=== PATIENT | female | born 2000 | race Caucasian/White ===

== ENCOUNTER 2018-07-20 21:58 | Observation (INO) ==
[2018-07-20 22:30] LABS: Bilirubin,Urine Negative (Negative); Blood,Urine Negative (Negative); Clarity,Urine Cloudy (Clear); Color,Urine Yellow (Yellow); Glucose,Urine (UA) Normal (Normal); Ketones,Urine Negative (Negative); Leukocyte Esterase,Urine Small (Negative); Nitrite,Urine Negative (Negative); Protein,Urine 30 mg/dL (Neg-Trace); Specific Gravity,Urine 1.011 (1.010-1.025); Urobilinogen,Urine Normal (Normal)
[2018-07-20 22:31] LABS: Bacteria,Urine Moderate per hpf (None-Few); Hyaline Casts,Urine Few per lpf (None-Few); RBC,Urine 0-3 per hpf (0-3); Squamous Epithelial Cell,Urine Many per lpf (None-Few); WBC,Urine 30-50 per hpf (0-3)
[2018-07-20 22:40] LABS: Amphetamine Screen,Urine Negative ng/mL (Cutoff=1000); Barbiturate Screen,Urine Negative ng/mL (Cutoff=200); Benzodiazepines Screen,Urine Negative ng/mL (Cutoff=200); Cannabinoid Screen,Urine Negative ng/mL (Cutoff = 50); Cocaine Screen,Urine Negative ng/mL (Cutoff= 300); Opiate Screen,Urine Negative ng/mL (Cutoff=300); Phencyclidine Screen,Urine Negative ng/mL (Cutoff=25)
--- NOTE | 2018-07-20 23:49 | Discharge Summary ---
Date of Encounter: 07/20/18 Time of Encounter: 23:48 - Discharge Diagnosis (1) 35 weeks gestation of Priority: Primary Status: Acute Comments: Admit to observation for labor evaluation (2) NST (non-stress test) reactive Priority: Secondary Status: Acute Comments: Cat I FHR tracing, +15x15 accels, no decels. (3) uterine contractions in third trimester, antepartum Priority: Secondary Status: Acute Comments: Continuous contraction monitoring. - Discharge Medications Allergies/Adverse Reactions: Allergy/AdvReac Type Severity Reaction Status Date / Time No Known Allergies Allergy Verified 07/20/18 22:10 Data Procedures and tests throughout hospitalization: Laboratory Tests 07/20/18 07/20/18 22:12 22:12 Urine Color Yellow Urine Clarity Cloudy A Urine pH 7.0 Ur Specific [place] 1.011 Urine Protein 30 H Urine Glucose (UA) Normal Urine Ketones Negative Urine Blood Negative Urine Nitrite Negative Urine Bilirubin Negative Urine Urobilinogen Normal Ur Leukocyte Esterase Small H Urine Microscopic RBC 0-3 Urine Microscopic WBC 30-50 H Ur Squamous Epith Cells Many H Urine Bacteria Moderate H Hyaline Casts Few Ur Culture Indicated? YES A Urine Opiates Screen Negative Ur Barbiturates Screen Negative Ur Phencyclidine Scrn Negative Ur Amphetamines Screen Negative U Benzodiazepines Scrn Negative Urine Cocaine Screen Negative U Marijuana (THC) Screen Negative Ur Drug Screen Interp See Below Labs on day of discharge: Labs from last 24 hours 07/20/18 07/20/18 22:12 22:12 Urine Color Yellow Urine Clarity Cloudy A Urine pH 7.0 Ur Specific [place] 1.011 Urine Protein 30 H Urine Glucose (UA) Normal Urine Ketones Negative Urine Blood Negative Urine Nitrite Negative Urine Bilirubin Negative Urine Urobilinogen Normal Ur Leukocyte Esterase Small H Urine Microscopic RBC 0-3 Urine Microscopic WBC 30-50 H Ur Squamous Epith Cells Many H Urine Bacteria Moderate H Hyaline Casts Few Ur Culture Indicated? YES A Urine Opiates Screen Negative Ur Barbiturates Screen Negative Ur Phencyclidine Scrn Negative Ur Amphetamines Screen Negative U Benzodiazepines Scrn Negative Urine Cocaine Screen Negative U Marijuana (THC) Screen Negative Ur Drug Screen Interp See Below Date of admission: 07/20/18 21:58 Discharging clinician: Kaylin Juarez Anticipated date of discharge: 07/20/18 - Patient Status Disposition: Home, Self-Care Condition: Good Functional capacity at discharge: independent ambulation Overall status at discharge: patient is progressing back to baseline - Discharge Instructions Additional Instructions: LABOR AND DELIVERY DISCHARGE INSTRUCTIONS Signs and Symptoms to be Reported to your Doctor Immediately: * Sudden gush, continuous or intermittent lead of fluid from vagina (note the time of gush and color of fluid) * Onset of bright red vaginal bleeding with or without pain (if you had a vaginal exam during this visit you may notice some dark red spotting. This is normal.) * Lower abdominal cramping or backache that is premenstrual-like feeling. * More than 6 contractions in one hour. * Burning during urination, having to urinate more frequently or pain in your mid-back. * A change in the baby's activity. This could be an increase or decrease in activity. * Severe headache which does not go away with tylenol. * Sudden swelling in the face, hands, arms and/or legs. * Upper abdominal pain - sometimes associated with heartburn or nausea and is not relieved by Maalox, Mylanta or Tums. * Dizziness or blurred vision or visual disturbances (seeing stars/lights). * Kick Counts One hour after a meal, lay down on one side in a quiet place. Count the number of will the baby moves during an hour. If less than 6 movements, notify your physician. Diet: *Force fluids - 8-10 tall glasses of fluid per day. May include popsicles and jello. 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 Reports positive movement and denies vaginal bleeding and fluid leakage. monitoring shows a reactive FHR and irregular contractions. Patient was without cervical change in >1 hr so she will be discharged home with labor precautions. She is to follow up with her OB provider as scheduled for routine care. Time Attestation: Total time spent providing and/or coordinating discharge services: Time Spent: Less than 30 minutes Exam - Constitutional General appearance IM: A&O X 3, no acute distress - Respiratory Respiratory exam: Absent: respiratory distress - Cardiovascular Cardiovascular exam IM: Absent: irregular rhythm - GI/Abdominal GI/Abdominal exam IM: normal bowel sounds - Rectal Rectal exam: deferred - Extremities Exam Extremities exam IM: Present: full ROM. Absent: calf tenderness - Neurological Exam Neurological exam: alert, normal gait, oriented X3 - Other Additional findings: Per RN exam - VTE Reasons for not Prescribing Prophylaxis: Treatment not Indicated - Low risk for VTE
== END 2018-07-20 23:50 | disposition home or self-care (01) ==
LOC: 1NENULAB
PROVIDERS: ADMIT Registered Nurse; ATTEND Registered Nurse

== ENCOUNTER 2018-07-26 14:07 | Inpatient (IN) ==
[~2018-07-26 14:07] MED LIST: Famotidine 20 MG/2 ML VIAL IVP PRN; Lidocaine 1% 20 ML MDV INFILT PRN; Metoclopramide 10 MG/2 ML VIAL IVP PRN; Naloxone 0.4 MG/ML INJ IVP PRN; Ondansetron 4 MG/2 ML VIAL IVP PRN
[2018-07-26] MEDS ORDERED: Penicillin G Potassium 5,000,000 UNIT in 0.9 % Sodium Chloride Mini Bag 100 ML IVPB ONE (14:09)
[2018-07-26] MEDS ORDERED: Ringers Solution, Lactated 1,000 ML IVC SCH (14:15)
--- NOTE | 2018-07-26 14:21 | OB/GYN History & Physical ---
Date of Encounter: 07/26/18 Time of Encounter: 14:10 Assessment and Plan (1) 39 weeks gestation of Current visit: Yes Status: Acute Grossly ruptured Admit for labor GBS unknown - prophylactic PCN started Nubain/epidural upon request Consider rupture of forebag after pain better controlled Consider IV pitocin for augmentation Anticipate vaginal delivery POC per consult with Dr Angeles (2) Anemia during in third trimester Current visit: Yes Status: Acute History of Present Illness Chief complaint: Leaking fluid & Pain HPI: Ms. Rodriguez is a 17 year old at 36 weeks and 4 days that presents to triage with complaints of pain and leaking of fluid that began around 1030 last night. She states that she waited overnight thinking the pain would subside. She has had care with the midwives. She is anemic and was seen by hem/onc for referral due to patient non-compliance with oral supplements. She states she could not tolerate them and is scheduled for an IV iron infusion on the of this month. She has had adequate care. She states positive movement. She denies headaches, vision changes, epigastric pain, and vaginal bleeding. Labs: GBS pending Hep B NR HIV NR RPR Negative Rubella Immune Varicella NonImmune Blood type A+ Past Med Surg Social Fam HX - Past Medical History Medical history: no medical history Psychiatric history: no psych history - Past Surgical History Surgical History: no surgical history - Social History Smoking Status: Never smoker Smokeless Tobacco Status: No Alcohol use: none Drug use: none - Family History Father Living Status: Still Living Hx Family Cardiac Disorders: No Hx Family Respiratory Disorders: No Hx Family Cancer: No Hx Family GI Disorders: No Hx Family Endocrine Disorder: No Hx Family Neuromuscular Disorders: No Hx Family Neurologic Disorders: No Hx Family HEENT Disorders: No Hx Family Autoimmune Disorders: No Obstetrical History - Pregnancies : 1 Para: 0 Term: 0 : 0 Ab's: 0 Livin Medications and Allergies Cyanocobalamin (Vitamin B-12) [Vitamin B-12] 1,000 mcg PO DAILY #30 capsule 07/22/18 [Rx] Folic Acid 1 mg PO DAILY #30 tablet 07/22/18 [Rx] Allergy/AdvReac Type Severity Reaction Status Date / Time No Known Allergies Allergy Verified 07/21/18 14:39 Review of System OB All systems PM: reviewed and no additional remarkable complaints except as stated Exam - Constitutional Constitutional: well developed, well nourished, average body habitus, moderate distress - HEENT HEENT: Normocephaly, Mucus Membranes Moist - Neck Neck exam: full ROM - Lungs Respiratory exam: CTAB - Cardiovascular Cardiovascular exam: RRR, +S1, +S2 - Abdomen Abdomen: Present: bowel sounds normal, gravid, non tender - Extremities Extremities exam: normal capillary refill, normal inspection, radial pulses palpable and symmetrical Deep Tendon Reflex Grade: 2+ Normal - Vulva Vulva: bilateral: normal - Vagina Vagina: Present: normal moisture (Grossly ruptured with membranes noted over hair) - Cervix Dilation: 5 Effacement: 100 Station: 0 - Uterus Uterus exam: Present: normal size, normal contour - Anus/Rectum Anus/Rectum: Present: normal perianal skin - Comments Comments: FHTs 150 moderate variability and 15 xx 15 accels Contractions every 3 minutes per toco; moderate to strong per palpation Results All other labs normal. - VTE Reasons for not Prescribing Prophylaxis: Treatment not Indicated - Low risk for VTE
[2018-07-26] MEDS: *HR* Nalbuphine 10 MG/ML AMPUL IVP PRN ×2 (14:29→18:52)
[2018-07-26 14:47] LABS: Amphetamine Screen,Urine Negative ng/mL (Cutoff=1000); Barbiturate Screen,Urine Negative ng/mL (Cutoff=200); Benzodiazepines Screen,Urine Negative ng/mL (Cutoff=200); Cannabinoid Screen,Urine Negative ng/mL (Cutoff = 50); Cocaine Screen,Urine Negative ng/mL (Cutoff= 300); Opiate Screen,Urine Negative ng/mL (Cutoff=300); Phencyclidine Screen,Urine Negative ng/mL (Cutoff=25)
[2018-07-26 14:48] LABS: Basophils % 0.2 %
[2018-07-26 14:49] LABS: Basophils # 0.1 K/mcL (0.0-0.2); Eosinophils # 0.1 K/mcL (0.0-0.6); Eosinophils % 0.4 %; Hematocrit 29.9 % (35.3-44.9); Hemoglobin 9.4 g/dL (11.5-15.4); Immature Granulocytes % 1.1 % (0-4); Lymphocytes # 2.4 K/mcL (0.6-4.6); Mean Corpuscular HGB Conc 31.4 g/dL (31.6-35.5); Mean Corpuscular Hemoglobin 27.6 pg (28.0-33.3); Mean Corpuscular Volume 87.9 fL (83.0-100.0); Mean Platelet Volume 12.3 fL (9.4-12.4); Monocytes # 1.6 K/mcL (0.0-1.3); Platelet Count 339 K/mcL (140-400); Red Cell Distribution Width 14.2 % (11.5-14.5); Segmented Neutrophils % 83.3 %; White Blood Count 26.5 K/mcL (4.3-11.1)
[2018-07-26 14:52] LABS: Neutrophils # 22.1 K/mcL (1.6-8.9)
[2018-07-26 14:53] LABS: Platelet Estimate Normal (Normal)
[2018-07-26] MEDS ORDERED: Penicillin G Potassium 2,500,000 UNIT in 0.9 % Sodium Chloride 100 ML IVPB SCH (16:00)
[2018-07-26] MEDS ORDERED: Methylergonovine 0.2 MG/ML AMPUL IM ONE ×2 (17:24→22:11)
[2018-07-26] MEDS ORDERED: Oxytocin 20 units/ LR 1000 mL 20 UNIT/1,000 ML BAG IVC SCH ×2 (17:45→22:11)
[2018-07-26] MEDS ORDERED: ceFAZolin 1,000 MG in Water for inj. (sterile) 20 ML 10 ML IVPB SCH (18:00)
--- NOTE | 2018-07-26 20:57 | OB/GYN Procedure Note ---
Delivery - Delivery Date: 07/26/18 Provider: Pratima Patel Intrapartum events: none Delivery induction: none Delivery augmentation: pitocin Delivery monitor: external FHT, external uterine Anesthesia: local Quantitated Blood Loss: 450 - Infant (s) Infant A Infant Delivery Date: 07/26/18 Delivery Time: 20:08 Presentation: vertex Position: JANEE Route of delivery: Gender: Female Viability: Viable Pounds: 6 Ounces: 11 Weight Gram: 3.02 kg at 1 minute: 8 at 5 mins: 9 Shoulder Dystocia: not encountered Specimens collected: cord blood Placenta: spontaneous, uterine exploration (swept for membranes) Cord: 3 umbilical vessels - Repair Episiotomy: none Laceration Description: Labial - Complications Delivery complications: uterine atony Delivery comments: Unblocked patient progressed to complete and began pushing to in the JANEE position. No shoulder dystocia, no nuchal cord, and no meconium encountered. Infant placed onto maternal abdomen - warmed, dried, and stimulated. Cord double clamped and cut with the assistance of the FOB after pulsations ceased. Apgars 8 and 9 at one and five minutes of age. Placenta delivered spontaneously and appears grossly intact with 3 vessel cord. Uterine atony noted; methergine given, bimanual massage, IV pitocin and uterine sweep completed for resolution of atony. Uterine sweep reveals scant amount membranes. Upon perineal inspection superficial laceration noted to posterior left vaginal introitus - hemostatic and left to heal by second intention. A labial -urethral laceration was noted and to not be hemostatic. Repaired with 4-0 vicryl in the usual fashion. Patient tolerated repair well. Patient then straight catheterized for 600mL of clear urine. Fundus was then noted to be firm and at U/3 with scant bleeding. and mother stable in skin to skin. EBL 450mL. Dr Angeles notified of delivery. - Disposition Mom disposition: stable in LDR disposition: stable in LDR
[2018-07-26] MEDS ORDERED: Rho Immune Globulin 1,500 UNIT SYRINGE IM PRN (22:11)
[2018-07-26] MEDS ORDERED: Measles/Mumps/Rubella Vacc 0.5 ML VIAL SQ PRN (22:11)
[2018-07-26] MEDS ORDERED: Oxytocin 20 units/ LR 1000 mL 20 UNIT/1,000 ML BAG IVC ONE (22:11)
[2018-07-26] MEDS ORDERED: Sennosides 8.6 MG TABLET PO PRN (22:11)
[2018-07-26] MEDS ORDERED: Ibuprofen 600 MG TABLET PO PRN (22:11)
[2018-07-26] MEDS ORDERED: Acetaminophen 325 MG TABLET PO PRN (22:11)
[2018-07-26] MEDS ORDERED: Benzocaine/Menthol 56 GM AEROSOL SPRAY TP PRN (22:11)
[2018-07-27] MEDS ORDERED: ceFAZolin 1,000 MG in Water for inj. (sterile) 20 ML 10 ML IVP SCH
[2018-07-27] MEDS: ceFAZolin 1,000 MG in Water for inj. (sterile) 20 ML 10 ML IVPB SCH ×2 (03:01→11:08)
[2018-07-27 07:40] LABS: Basophils % 0.1 %; Hematocrit 22.3 % (35.3-44.9); Immature Granulocytes % 1.5 % (0-4); Lymphocytes # 2.7 K/mcL (0.6-4.6); Lymphocytes % 11.2 %; Mean Corpuscular HGB Conc 31.8 g/dL (31.6-35.5); Mean Corpuscular Volume 87.8 fL (83.0-100.0); Monocytes # 2.2 K/mcL (0.0-1.3); Monocytes % 9.3 %; Neutrophils # 18.3 K/mcL (1.6-8.9); Nucleated Red Blood Cells 0.1 /100 WBC (0); Platelet Count 326 K/mcL (140-400); Red Blood Count 2.54 M/mcL (3.82-4.97); Red Cell Distribution Width 14.2 % (11.5-14.5); Segmented Neutrophils % 77.9 %; White Blood Count 23.6 K/mcL (4.3-11.1)
[2018-07-27 07:50] LABS: Hemoglobin 7.1 g/dL (11.5-15.4)
[2018-07-27] MEDS ORDERED: Prenatal Vit/FA 1 EACH TABLET PO SCH (09:00)
--- NOTE | 2018-07-27 09:43 | OB/GYN Progress Note ---
Date of Encounter: 07/27/18 Time of Encounter: 09:41 - Assessment and Plan (1) Vaginal delivery Current Visit: Yes Status: Acute Pt reports feeling tired but otherwise well this am. Continue to monitor for s/sx anemia today. Anticipate discharge home in am. (2) Anemia during in third trimester Current Visit: Yes Status: Acute Subjective - Subjective Patient reports: appetite normal, voiding normally, pain well controlled, ambulating normally : doing well Objective - Latest Vital Signs Latest vital signs: Vital Signs Temp Pulse Resp BP Pulse Ox 07/27/18 08:07 98.1 F 102 16 128/81 98 07/27/18 01:00 99.1 F 106 16 124/68 99 07/26/18 23:45 98.4 F 114 14 129/80 97 07/26/18 23:11 98.4 F 110 16 138/87 97 Intake and Output 07/26/18 07/27/18 07/27/18 23:59 07:59 15:59 Output Total 950 / 950 400 / 900 500 / 900 Balance -950 / -950 -400 / -900 -500 / -900 Output: Urine 400 / 900 500 / 900 Estimated Blood Loss 450 / 450 Straight Cath 500 / 500 Other: Weight 65.2 kg Patient Weight 07/27/18 23:59 Weight 65.2 kg - Exam Lungs: bilateral: normal Chest: Normal S1, Normal S2 Extremities: Present: normal Abdomen: Present: soft Uterus: Present: firm Uterus Position: 1 Finger Below Umbilicus - Labs Labs: Laboratory Results - last 24 hr 07/26/18 07/26/18 07/27/18 14:08 14:25 07:21 WBC 26.5 H 23.6 H RBC 3.40 L 2.54 L Hgb 9.4 L 7.1 L D Hct 29.9 L 22.3 L MCV 87.9 87.8 MCH 27.6 L 28.0 MCHC 31.4 L 31.8 RDW 14.2 14.2 Plt Count 339 D 326 MPV 12.3 12.0 Immature Gran % 1.1 1.5 Seg Neutrophils % 83.3 77.9 Lymphocytes % 9.0 11.2 Monocytes % 6.0 9.3 Eosinophils % 0.4 0.0 Basophils % 0.2 0.1 Neutrophils # 22.1 H 18.3 H Lymphocytes # 2.4 2.7 Monocytes # 1.6 H 2.2 H Eosinophils # 0.1 0.0 Basophils # 0.1 0.0 Nucleated RBCs/100 WBC 0.1 H Platelet Estimate Normal Urine Opiates Screen Negative Ur Barbiturates Screen Negative Ur Phencyclidine Scrn Negative Ur Amphetamines Screen Negative U Benzodiazepines Scrn Negative Urine Cocaine Screen Negative U Marijuana (THC) Screen Negative Ur Drug Screen Interp See Below
[2018-07-27] MEDS: Ketoconazole 2% CRM 15 GM TUBE TP SCH (11:07)
[2018-07-27] MEDS: Iron Polysaccharide Complex 150 MG CAPSULE PO SCH ×2 (12:06→23:25)
[2018-07-28 08:14] LABS: Basophils # 0.1 K/mcL (0.0-0.2); Basophils % 0.4 %; Eosinophils # 0.4 K/mcL (0.0-0.6); Eosinophils % 2.6 %; Hematocrit 21.4 % (35.3-44.9); Hemoglobin 6.7 g/dL (11.5-15.4); Immature Granulocytes % 1.5 % (0-4); Lymphocytes # 2.9 K/mcL (0.6-4.6); Lymphocytes % 20.2 %; Mean Corpuscular HGB Conc 31.3 g/dL (31.6-35.5); Mean Corpuscular Hemoglobin 27.5 pg (28.0-33.3); Mean Corpuscular Volume 87.7 fL (83.0-100.0); Mean Platelet Volume 11.8 fL (9.4-12.4); Monocytes # 1.4 K/mcL (0.0-1.3); Monocytes % 9.5 %; Neutrophils # 9.4 K/mcL (1.6-8.9); Platelet Count 373 K/mcL (140-400); Red Blood Count 2.44 M/mcL (3.82-4.97); Red Cell Distribution Width 14.4 % (11.5-14.5); Segmented Neutrophils % 65.8 %; White Blood Count 14.2 K/mcL (4.3-11.1)
--- NOTE | 2018-07-28 08:59 | Discharge Summary ---
Date of Encounter: 07/28/18 Time of Encounter: 08:55 - Discharge Diagnosis (1) Vaginal delivery Priority: Primary Status: Acute Comments: S/P Vaginal delivery Day 2 Pain is well controlled Lochia is light and without clots VSS; patient reports extreme fatigue Voiding without difficulty; passing flatus Discharge home after 2 units of PRBCs POC per consult with Dr Thorpe (2) Blood loss anemia Priority: Secondary Status: Acute Comments: VSS, patient reports fatigue Hgb down this AM; patient accepts 2 units of PRBCs - Discharge Medications Prescriptions: New Breast Pump [BREAST PUMP] 1 each .ROUTE AD #1 each Docusate [Colace] 100 mg PO BID #30 capsule Benzocaine/Menthol [place] [Dermoplast [place]] 1 appl TP QID PRN aerosol PRN Reason: See Comments Iron Polysaccharide Complex [Ferrex 150] 150 mg PO BID #190 capsule Ibuprofen [Motrin] 600 mg PO Q6HR PRN #30 tablet PRN Reason: Cramping Ketoconazole 2% CRM [Nizoral Cream] 1 appl TP BID tube Acetaminophen [Tylenol] 650 mg PO Q6HR PRN tablet PRN Reason: Mild Pain Home Medications: Acetaminophen [Tylenol] 650 mg PO Q6HR PRN tablet 07/28/18 [Rx] Benzocaine/Menthol [place] [Dermoplast [place]] 1 appl TP QID PRN aerosol 07/28/18 [Rx] Breast Pump [BREAST PUMP] 1 each .ROUTE AD #1 each 07/28/18 [Rx] Docusate [Colace] 100 mg PO BID #30 capsule 07/28/18 [Rx] Ibuprofen [Motrin] 600 mg PO Q6HR PRN #30 tablet 07/28/18 [Rx] Iron Polysaccharide Complex [Ferrex 150] 150 mg PO BID #190 capsule 07/28/18 [Rx] Ketoconazole 2% CRM [Nizoral Cream] 1 appl TP BID tube 07/28/18 [Rx] Allergies/Adverse Reactions: Allergy/AdvReac Type Severity Reaction Status Date / Time No Known Allergies Allergy Verified 07/21/18 14:39 Data Procedures and tests throughout hospitalization: Laboratory Tests 07/26/18 07/26/18 07/26/18 14:08 14:25 15:06 WBC 26.5 H RBC 3.40 L Hgb 9.4 L Hct 29.9 L MCV 87.9 MCH 27.6 L MCHC 31.4 L RDW 14.2 Plt Count 339 D MPV 12.3 Immature Gran % 1.1 Seg Neutrophils % 83.3 Lymphocytes % 9.0 Monocytes % 6.0 Eosinophils % 0.4 Basophils % 0.2 Neutrophils # 22.1 H Lymphocytes # 2.4 Monocytes # 1.6 H Eosinophils # 0.1 Basophils # 0.1 Nucleated RBCs/100 WBC Platelet Estimate Normal Urine Opiates Screen Negative Ur Barbiturates Screen Negative Ur Phencyclidine Scrn Negative Ur Amphetamines Screen Negative U Benzodiazepines Scrn Negative Urine Cocaine Screen Negative U Marijuana (THC) Screen Negative Ur Drug Screen Interp See Below Blood Type A POSITIVE Crossmatch See Detail 07/27/18 07/28/18 07:21 07:44 WBC 23.6 H 14.2 H RBC 2.54 L 2.44 L Hgb 7.1 L D 6.7 L Hct 22.3 L 21.4 L MCV 87.8 87.7 MCH 28.0 27.5 L MCHC 31.8 31.3 L RDW 14.2 14.4 Plt Count 326 373 MPV 12.0 11.8 Immature Gran % 1.5 1.5 Seg Neutrophils % 77.9 65.8 Lymphocytes % 11.2 20.2 Monocytes % 9.3 9.5 Eosinophils % 0.0 2.6 Basophils % 0.1 0.4 Neutrophils # 18.3 H 9.4 H Lymphocytes # 2.7 2.9 Monocytes # 2.2 H 1.4 H Eosinophils # 0.0 0.4 Basophils # 0.0 0.1 Nucleated RBCs/100 WBC 0.1 H Platelet Estimate Urine Opiates Screen Ur Barbiturates Screen Ur Phencyclidine Scrn Ur Amphetamines Screen U Benzodiazepines Scrn Urine Cocaine Screen U Marijuana (THC) Screen Ur Drug Screen Interp Blood Type Crossmatch Labs on day of discharge: Labs from last 24 hours 07/28/18 07/26/18 07:44 15:06 WBC 14.2 H RBC 2.44 L Hgb 6.7 L Hct 21.4 L MCV 87.7 MCH 27.5 L MCHC 31.3 L RDW 14.4 Plt Count 373 MPV 11.8 Immature Gran % 1.5 Seg Neutrophils % 65.8 Lymphocytes % 20.2 Monocytes % 9.5 Eosinophils % 2.6 Basophils % 0.4 Neutrophils # 9.4 H Lymphocytes # 2.9 Monocytes # 1.4 H Eosinophils # 0.4 Basophils # 0.1 Blood Type A POSITIVE Antibody Screen Pending Crossmatch See Detail Date of admission: 07/26/18 14:07 Primary care physician: PCP DEE Consults: 07/26/18 22:11 Consult to Lightning Protection Installer [CONS] Routine Comment: Vaginal delivery, consult needed Discharging clinician: Pratima Patel Anticipated date of discharge: 07/28/18 - Patient Status Disposition: Home, Self-Care Condition: Good Functional capacity at discharge: independent ambulation Overall status at discharge: patient is progressing back to baseline - Discharge Instructions Follow Up With: NONE,PCP [Primary Care Provider] - Pratima Patel CNM [Advanced Practice Nurse] - - Diet and Activity Activity: increase activity as tolerated Diet: regular diet Hospital Course Reason for admission: active labor, IUP - Delivery: Episiotomy: none Laceration: other Other procedures: none complications: none Discharge diagnosis: delivery baby: female Time Attestation: Total time spent providing and/or coordinating discharge services: Time Spent: Less than 30 minutes Exam - Constitutional Vitals: Temp Pulse Resp BP Pulse Ox 97.4 F L 97 14 105/67 97 07/28/18 08:00 07/28/18 08:00 07/28/18 08:00 07/28/18 08:00 07/28/18 08:00 General appearance IM: cooperative, A&O X 3, pleasant - Respiratory Respiratory exam: Present: CTAB - Cardiovascular Cardiovascular exam IM: Present: +S1, +S2 - GI/Abdominal GI/Abdominal exam IM: normal bowel sounds, soft - Rectal Rectal exam: deferred - Uterine Tone: Firm Uterus Position: 2 Fingers Below Umbilicus - Extremities Exam Extremities exam IM: Present: normal capillary refill, normal inspection, radial pulses palpable and symmetrical - Neurological Exam Neurological exam: alert, oriented X3
[2018-07-28] MEDS ORDERED: 0.9 % Sodium Chloride 500 ML ONE (09:02)
[2018-07-28] MEDS: Iron Polysaccharide Complex 150 MG CAPSULE PO SCH (09:12)
[2018-07-28] MEDS: Ketoconazole 2% CRM 15 GM TUBE TP SCH (09:13)
[2018-07-28] MEDS ORDERED: 0.9 % Sodium Chloride 250 ML ONE (11:53)
[2018-07-28 14:44] VITALS: BP 123/83
[2018-07-28 16:54] LABS: Basophils # 0.1 K/mcL (0.0-0.2); Basophils % 0.4 %; Eosinophils # 0.3 K/mcL (0.0-0.6); Eosinophils % 2.2 %; Hematocrit 30.6 % (35.3-44.9); Immature Granulocytes % 2.3 % (0-4); Lymphocytes # 2.6 K/mcL (0.6-4.6); Lymphocytes % 17.5 %; Mean Corpuscular HGB Conc 31.4 g/dL (31.6-35.5); Mean Corpuscular Hemoglobin 28.1 pg (28.0-33.3); Mean Corpuscular Volume 89.5 fL (83.0-100.0); Mean Platelet Volume 11.7 fL (9.4-12.4); Monocytes # 1.3 K/mcL (0.0-1.3); Monocytes % 8.7 %; Neutrophils # 10.3 K/mcL (1.6-8.9); Platelet Count 359 K/mcL (140-400); Red Blood Count 3.42 M/mcL (3.82-4.97); Red Cell Distribution Width 14.6 % (11.5-14.5); Segmented Neutrophils % 68.9 %; White Blood Count 14.9 K/mcL (4.3-11.1)
[2018-07-28 17:03] LABS: Hemoglobin 9.6 g/dL (11.5-15.4)
== END 2018-07-28 17:25 | disposition home or self-care (01) | DRG 560 ==
LOC: 1NENULAB → 1NENUOBS 23:07
PROVIDERS: ADMIT Advanced Practice Midwife; ATTEND Advanced Practice Midwife